=== PATIENT | male | born 2000 | race Caucasian/White ===

== ENCOUNTER → 2022-10-14 | Outpatient (CLI) | payer OTHER ==
--- NOTE | 2022-10-14 13:10 | XR ---
EXAMINATION TYPE: XR knee complete RT DATE OF EXAM: 10/14/2022 CLINICAL HISTORY: Contusion injury with pain TECHNIQUE: Three views of the right knee are obtained. COMPARISON: None. FINDINGS: There is no acute fracture/dislocation evident in right knee. Tricompartment joint spaces are maintained. No significant spurring. Possible small to moderate size joint effusion. The overlyi ng soft tissue appears unremarkable. IMPRESSION: There is no acute fracture or dislocation in the right knee.
--- NOTE | 2022-10-14 13:12 | XR ---
EXAMINATION TYPE: XR femur LT DATE OF EXAM: 10/14/2022 CLINICAL HISTORY: Contusion injury with pain TECHNIQUE: Two views of the left femur are obtained. COMPARISON: None FINDINGS: There is no acute fracture or dislocation seen in the left femur. The left hip and knee j oints appear within normal limits. The overlying soft tissue appears unremarkable. IMPRESSION: There is no acute fracture or dislocation in the left femur.
== END | disposition home or self-care (01) ==
LOC: RADXRMAIN 12:34
PROVIDERS: ATTEND Emergency Medicine
DX: S80.01XA Contusion of right knee, initial encounter (principal); M79.652 Pain in left thigh